=== PATIENT | female | born 1980 | race Caucasian/White ===

== ENCOUNTER 2021-12-26 17:14 | Observation (INO) | payer OTHER ==
[~2021-12-26] VITALS: Ht 152.4 cm; Wt 81.2 kg
[2021-12-26 20:32] LABS: RED BLOOD COUNT 4.37 M/UL (4.00-5.10)
[2021-12-26 20:54] LABS: BUN/CREATININE RATIO 22 (0-10)
[2021-12-27 06:39] LABS: HEMOGLOBIN 13.8 gm/dl (12.3-15.3); RED BLOOD COUNT 4.69 M/UL (4.00-5.10); WHITE BLOOD COUNT 10.5 K/UL (4.5-11.0)
[2021-12-27 07:23] LABS: BUN/CREATININE RATIO 31 (0-10)
[2021-12-27] MEDS ORDERED: B-121000 MCG PO (13:33)
[2021-12-27] MEDS ORDERED: VITAMIN D350 MCG PO (13:33)
[2021-12-27] MEDS ORDERED: HYDROCHLOROTH12.5 MG PO (13:34)
[2021-12-27] MEDS ORDERED: LISINOPRIL40 MG PO (13:34)
[2021-12-27] MEDS ORDERED: OMEGA-3 ACID ETH1 GM PO (13:35)
[2021-12-27] MEDS ORDERED: ONDANSETRON HCL8 MG PO (13:35)
[2021-12-27] MEDS ORDERED: PAROXETINE HCL40 MG PO (13:35)
[2021-12-27] MEDS ORDERED: PROTONIX 40 MG40 M1 PO (13:35)
[2021-12-27] MEDS ORDERED: ZOCOR40 MG PO (13:36)
[2021-12-27] MEDS ORDERED: OZEMPIC0.25 MG/0. SQ (13:36)
[2021-12-27] MEDS ORDERED: IBU800 MG PO (13:37)
[2021-12-27] MEDS ORDERED: GABAPENTIN600 MG PO (13:37)
[2021-12-27] MEDS ORDERED: TIZANIDINE HCL4 MG PO (13:37)
[2021-12-27] MEDS ORDERED: LANTUS SOL100 UNIT/1 SQ (13:38)
--- NOTE | 2021-12-27 15:30 | NUR ---
PATIENT HAS LEFT THE UNIT TWICE NOW TO SMOKE, THIS TIME SHE DID NOT COME BACK, CARDIOLOGY COME TO SEE HER SHE WAS NOT IN HER ROOM, THE PA ALSO CAME I WENT INTO THE PATIENTS ROOM AND HER BELONGINGS ARE GONE AND HER IV CATH WAS LAYING IN THE BED, PHYSICIAN AND HS NOTIFIED.
== END 2021-12-27 15:07 | disposition left against medical advice (07) ==
LOC: ER1 17:14 → MED SURG 4 21:30 → CDU 21:30 → MED SURG 4 23:27
PROVIDERS: Emergency Medicine; ADMIT Internal Medicine
DX: R07.89 Other chest pain (principal); E11.9 Type 2 diabetes mellitus without complications; I10 Essential (primary) hypertension; F41.9 Anxiety disorder, unspecified; F17.210 Nicotine dependence, cigarettes, uncomplicated; Z20.822 Contact with and (suspected) exposure to COVID-19
CPT/HCPCS: ECHO; 0241U; 71045; 80048; 80053; 80061; 81001; 82550; 82553; 82962; 83036; 83690; 83735; 83880; 84439; 84443; 84484; 84703; 85025; 85379; 93005; 93306; 99285; G0378